=== PATIENT | male | born 1980 | race Caucasian/White ===

== ENCOUNTER 2022-07-29 06:11 | Emergency (ER) | payer BC ==
[~2022-07-29] VITALS: Ht 185.4 cm; Wt 114.4 kg
[2022-07-29 06:32] VITALS: BP 162/90
[2022-07-29] MEDS ORDERED: KETOROLAC 60MG/2ML VIAL IM ONE (06:45)
[2022-07-29] MEDS ORDERED: MELO-105 MT (06:49)
[2022-07-29] MEDS ORDERED: PENI500T MT (06:49)
== END 2022-07-29 07:04 | disposition home or self-care (01) ==
LOC: ER 06:11
DX: R68.84 Jaw pain (principal)
CPT/HCPCS: 96372; 99283; J1885